=== PATIENT | female | born 1970 | race Two or more races ===

== ENCOUNTER 2018-01-01 09:25 | Outpatient (CLI) | payer OTHER | END 2018-01-01 11:30 | disposition home or self-care (01) | LOC: MAMO-SONO 09:25 | DX: Z12.31 Encounter for screening mammogram for malignant neoplasm of breast (principal); N64.4 Mastodynia ==

== ENCOUNTER → 2021-07-22 07:23 | Outpatient (CLI) | payer OTHER | END | disposition home or self-care (01) | LOC: NUCLEAR 07-19 10:00 | DX: I87.2 Venous insufficiency (chronic) (peripheral) (principal) ==